=== PATIENT | female | born 1990 | race Caucasian/White ===

== ENCOUNTER 2019-06-30 09:40 | Emergency (ER) | payer OTHER ==
[~2019-06-30] VITALS: Ht 162.6 cm; Wt 104.3 kg
[~2019-06-30 09:40] MED LIST: ACETAMINOPHEN-118 ML PO; GAS-X62.5 MG; ZOFRAN ODT4 MG PO
--- OUTSIDE RECORDS SUMMARY | 2019-06-30 09:42 | XMS REPORT | Continuity of Care Document ---
Author Author [employer] Organization [employer] Address Unknown Phone Unavailable Care Team Providers Care Art History Instructor Name Role Phone [employer] Unavailable Unavailable Problems Problem Status Onset Date Classification Date Reported Comments Source R10.13 - EPIGASTRIC PAIN Active 04/16/2017 [facility] Patient currently (finding) Resolved 03/07/2013 Problem 04/20/2017 [facility] Medications No Data Provided for This Section Allergies, Adverse Reactions, Alerts No Known Medication Allergies Immunizations No Data Provided for This Section Results No Data Provided for This Section Pathology Reports No Data Provided for This Section Diagnostic Reports Report Value Date Source Abdomen complete US PROCEDURE: ABDOMEN ULTRASOUND CLINICAL INDICATION: R10.13. Epigastric pain. COMPARISON: None. TECHNIQUE: Grayscale and limited color sonographic evaluation of the abdomen was performed with standard technique. Static images are submitted. FINDINGS: LIVER: The visualized liver shows normal contour, size and morphology with normal parenchymal echotexture. The maximum craniocaudal dimension of the liver measures approximately 17 cm. The main portal vein measures 0.96 cm. Hepatopedal flow is demonstrated in the main portal vein by spectral Doppler analysis. BILE DUCTS: The intrahepatic and extrahepatic bile ducts are not dilated with the visualized common bile duct measuring 0.51 cm. GALLBLADDER: There are nodular echogenic foci in the dependent portion of the gallbladder lumen likely gallstones the largest measuring approximately 0.4 cm. There is no demonstrable gallbladder wall thickening or pericholecystic fluid. The group contract analyst reports a positive sonographic Bay's sign. PANCREAS: The pancreas is partially obscured. The visualized pancreas is unremarkable. SPLEEN: The spleen is unremarkable and measures 10.5 x 3.9 x 3.4 cm. KIDNEYS: There is normal renal contour and morphology with normal parenchymal echotexture. There is no hydronephrosis. The right kidney measures 10.4 x 5.2 x 5.3 cm. The left kidney measures 11.3 x 4.9 x 5.4 cm. AORTA AND INFERIOR VENA CAVA: Visualized portions appear unremarkable. ASCITES: There is no ascites. IMPRESSION: 1. Cholelithiasis. 2. Otherwise unremarkable abdomen ultrasound. SL: 16 04/17/2017 [facility] Consultation Notes No Data Provided for This Section Discharge Summaries No Data Provided for This Section History and Physicals No Data Provided for This Section Vital Signs No Data Provided for This Section Encounters Location Location Details Encounter Type Encounter Number Reason For Visit Attending Provider ADM Date DC Date Status Source [facility] [id number] Dreadkezia Escalera 04/17/2017 04/18/2017 [facility] Procedures Procedure Code Date Perfomer Comments Source Tonsillectomy [id number] 10/01/2007 [facility] Assessment and Plan No Data Provided for This Section Plan of Care No Data Provided for This Section Social History Social History Date Source No data available for this section 04/18/2017 [facility] Family History No Data Provided for This Section Advance Directives No Data Provided for This Section Functional Status No Data Provided for This Section
--- OUTSIDE RECORDS SUMMARY | 2019-06-30 09:42 | XMS REPORT | Summary of Care ---
Author Author [facility] Organization [facility] Address Unknown Phone Unavailable Encounter [facility] [id number] Date(s): 04/17/17 - 04/17/17 [facility] [address] [place] [address]- [phone] Discharge Disposition: Home or Self Care Attending Physician: Sharad Escalera MD Referring Physician: Sharad Escalera MD Vital Signs No data available for this section Problem List Condition Effective Dates Status Health Status Informant (Confirmed) 03/07/13 - 08/30/00 Resolved 6:00 PM Allergies, Adverse Reactions, Alerts Substance Reaction Severity Status NKDA Active Medications No data available for this section Results No data available for this section Immunizations No data available for this section Procedures Procedure Date Related Diagnosis Body Site Tonsillectomy 2007 Social History No data available for this section Assessment and Plan No data available for this section
[2019-06-30] MEDS ORDERED: ONDANSETRON HCL 4 MG ORAL DISINTEGRATING TAB PO ONE (10:30)
[2019-06-30 10:44] VITALS: BP 139/71
[2019-06-30] MEDS ORDERED: DONNATAL/LIDOCAINE/MAALOX 30 ML SUSP PO SCH (15:00)
[2019-07-01] MEDS ORDERED: GABAPENTIN300 MG PO (08:54)
[2019-07-01] MEDS ORDERED: STRATTERA80 MG PO (08:54)
[2019-07-01] MEDS ORDERED: VENLAFAXINE HCL75 MG PO (08:54)
== END 2019-06-30 10:45 | disposition home or self-care (01) ==
LOC: ER 09:40
DX: R11.2 Nausea with vomiting, unspecified (principal)
CPT/HCPCS: 99281

== ENCOUNTER → 2019-07-02 | Day surgery (SDC) | payer OTHER ==
[~2019-07-02] MED LIST changes: +FENTANYL CITRATE/PF 100MCG/2 ML INJ ONE; +GABAPENTIN300 MG PO; +LIDOCAINE HCL 2% LOCAL INJ 5 ML SDV VIAL INJ ONE; +MIDAZOLAM HCL 2 MG/2 ML VIAL ONE; +PANTOPRAZOLE 40 MG 10ML VIAL ONE; +PROPOFOL IV EMULSION 10 MG/ML 50 ML VIAL ONE; +STRATTERA80 MG PO; +VENLAFAXINE HCL75 MG PO
[2019-07-02 16:50] VITALS: BP 124/78
--- NOTE | 2019-07-02 23:47 | Operative Report ---
DATE OF PROCEDURE: 07/02/2019 SURGEON: Tim Finley MD PROCEDURE: EGD with biopsies. INDICATIONS FOR EGD: Early satiety, bloating, nausea, and vomiting. MEDICATIONS: The patient was done under MAC, please see anesthesiologist's note. PROCEDURE IN DETAIL: With the patient in left lateral decubitus position, the flexible fiberoptic Olympus gastroscope was introduced into the esophagus under direct visualization without any difficulty. There was some patchy erythema noted in distal esophagus. Focal nodularity was noted at the GE junction that was biopsied. The scope was then advanced with ease into the stomach traversing a small sliding hiatal hernia. Mucosa overlying the antrum and the body revealed some patchy intense erythema and moderate edema and biopsies were obtained and sent to stain for H. pylori. The patient appears to be status post gastric sleeve. The pylorus was intubated with ease and the scope was advanced all the way to the second portion of the duodenum. Biopsies were obtained from the second portion and the duodenal bulb to rule out sprue. The scope was then withdrawn back into the stomach and retroflexed and previously described hiatal hernia was also noted in the retroflexed position. The scope was then straightened out, it was subsequently withdrawn and patient tolerated procedure well. IMPRESSION: 1. Distal esophagitis. 2. Focal nodularity, GE junction biopsied. 3. Small sliding hiatal hernia. 4. Status post gastric sleeve. Gastritis biopsied, biopsies sent to stain for H. pylori. 5. Rule out sprue. PLAN: Follow up histology. Initiate Protonix 40 mg one p.o. q.a.m. a.c. Tim Finley MD [facility] [place] /[id number] cc: Antonio Gardner MD
== END | disposition home or self-care (01) ==
LOC: OR 13:11
PROVIDERS: ATTEND Internal Medicine Gastroenterology
DX: R11.2 Nausea with vomiting, unspecified (principal); R10.10 Upper abdominal pain, unspecified; R19.7 Diarrhea, unspecified; K20.9 Esophagitis, unspecified; K44.9 Diaphragmatic hernia without obstruction or gangrene; Z98.84 Bariatric surgery status; K29.70 Gastritis, unspecified, without bleeding; K92.89 Other specified diseases of the digestive system; Z01.812 Encounter for preprocedural laboratory examination
CPT/HCPCS: 43239; 81025; C9113; J2001; J2250; J2704; J3010

== ENCOUNTER → 2019-07-23 | Outpatient (CLI) | payer OTHER ==
[~2019-07-23] MED LIST changes: -FENTANYL CITRATE/PF 100MCG/2 ML INJ ONE; +IOPAMIDOL 370 MG/ML 200 ML INFUS..BTL INJ ONE; -LIDOCAINE HCL 2% LOCAL INJ 5 ML SDV VIAL INJ ONE; -MIDAZOLAM HCL 2 MG/2 ML VIAL ONE; -PANTOPRAZOLE 40 MG 10ML VIAL ONE; -PROPOFOL IV EMULSION 10 MG/ML 50 ML VIAL ONE; +SODIUM CHLORIDE 0.9% 50ML 50 ML ONE
--- NOTE | 2019-07-23 21:40 | Diagnostic Imaging Report ---
EXAM: CT Abdomen and Pelvis WITH contrast INDICATION: GENERAL ABDOMEN PAIN , vomiting, loss of appetite, abdominal pain COMPARISON: None. TECHNIQUE: Abdomen and pelvis were scanned utilizing a multidetector helical scanner from the lung base to the pubic symphysis after administration of IV contrast. Coronal and sagittal reformations were obtained. Routine protocol was performed. Scan was performed when during portal venous phase. IV CONTRAST: 100 mL of Isovue 370 ORAL CONTRAST: Water COMPLICATIONS: None RADIATION DOSE: Total DLP: 721 mGy*cm Estimated effective dose: (DLP x 0.015 x size factor) mSv CTDIvol has been reviewed. It is below the limits set by the Radiation Protocol Committee (RPC). Dose modulation, iterative reconstruction, and/or weight based adjustment of the mA/kV was utilized to reduce the radiation dose to as low as reasonably achievable. FINDINGS: LINES and TUBES: None. LOWER THORAX: Unremarkable HEPATOBILIARY: The liver is mildly enlarged, measures 19.5 cm in craniocaudal dimension and the right midclavicular line. No focal hepatic lesions. No biliary ductal dilation. GALLBLADDER: There are cholecystectomy clips. SPLEEN: No splenomegaly. PANCREAS: No focal masses or ductal dilatation. ADRENALS: No adrenal nodules KIDNEYS/URETERS: Kidneys enhance symmetrically. No hydronephrosis. No cystic or solid mass lesions. No stones. GI TRACT: No abnormal distention, wall thickening, or evidence of bowel obstruction. Intact surgical changes of partial gastrectomy. Appendix is normal. PELVIC ORGANS/BLADDER: Streak artifact limits evaluation the pelvis. 3.3 cm round fluid structure may represent prominent ovarian follicle Uterus and bladder are unremarkable LYMPH NODES: No lymphadenopathy. VESSELS: Unremarkable. PERITONEUM / RETROPERITONEUM: No free air or fluid. BONES: Unremarkable. SOFT TISSUES: Pfannenstiel incision scar intact. IMPRESSION: 1. A 3.3 cm round fluid structure may represent prominent ovarian follicle. A routine pelvic ultrasound can be performed for further evaluation. 2. Mild hepatomegaly, possibly due to hepatic steatosis. Signed by: Ubaldo Muñoz DO on 07/23/2019 9:37 PM
== END ==
LOC: CT 17:29
PROVIDERS: ATTEND Internal Medicine Gastroenterology
DX: R10.84 Generalized abdominal pain (principal)
CPT/HCPCS: 74177; 81025; Q9967

== ENCOUNTER 2023-07-25 09:42 | Emergency (ER) | payer OTHER ==
[~2023-07-25] VITALS: Ht 162.6 cm; Wt 104.3 kg
[~2023-07-25 09:42] MED LIST changes: -IOPAMIDOL 370 MG/ML 200 ML INFUS..BTL INJ ONE; -SODIUM CHLORIDE 0.9% 50ML 50 ML ONE
[2023-07-25 09:46] VITALS: O2SAT 100
== END 2023-07-25 09:54 | disposition left against medical advice (07) ==
LOC: ER 09:50
DX: R11.2 Nausea with vomiting, unspecified (principal)